=== PATIENT | female | born 2000 | race Caucasian/White ===

== ENCOUNTER 2022-01-22 09:36 | Emergency (ER) | payer OTHER, SELFPAY ==
[2022-01-22 09:40] VITALS: BP 130/82; PULSE 97; TEMP 36.4; O2SAT 100; BMI 23.0
[2022-01-22 09:57] LABS: Appearance Urine Clear (Clear); Bilirubin Urine Negative (Negative); Blood Urine 1+ (Negative); Color Urine Yellow (Yellow); Glucose Urine Negative (Negative); Ketones Urine Negative (Negative); Leukocyte Esterase Urine Negative (Negative); Nitrite Urine Negative (Negative); Protein Urine Negative (Negative); Specific Gravity Urine >= 1.030 (1.000-1.030); Urobilinogen Urine 0.2 (0.2-1.0); pH Urine 5.5 (5.0-8.5)
[2022-01-22 09:58] LABS: HCG Qualitative* Negative (Negative)
[2022-01-22 10:10] LABS: RBC Urine 0-2 (0-2); WBC Urine 0-2 (0-5)
--- NOTE | 2022-01-22 10:33 | ED.GENADULT ---
HPI - General Adult General Chief complaint: Abdominal Pain Stated complaint: Abdominal pain Time Seen by Provider: 01/22/22 09:40 Source: patient Mode of arrival: ambulatory Limitations: no limitations History of Present Illness HPI narrative: 21-year-old female coming in today complaining of abdominal pain. She states that it started approximately 2 hours ago when she woke up. Pain is located across the lower abdomen in the pelvic area does not radiate. Nothing seems to make it better or worse. She describes it as a 3/10. Patient is not sexually active and has never been. She states that she has no dysuria, increased frequency urgency. She is not constipated, has daily bowel movements had 1 yesterday. No diarrhea. Denies any blood in her stool or urine. She is not nauseated has not vomited. She denies any fevers or chills. Her period is due any day now. She denies any vaginal discharge. Related Data Home Medications Medication Instructions Recorded Confirmed No Known Home Medications 01/22/22 01/22/22 Allergies Allergy/AdvReac Type Severity Reaction Status Date / Time No Known Drug Allergies Allergy Verified 01/22/22 09:44 Review of Systems Status of ROS: Reports: 10 or more systems reviewed and unremarkable except as noted in History and below [facility] Social History Smoking Status: Never smoker How often do you have a drink containing alcohol: never How often do you have six or more drinks on one occasion: Never AUDIT-C Alcohol total score: 0 Non-prescribed substance use: denies use Exam Narrative: Exam Narrative: Well-nourished well-developed patient in no acute distress. Alert and oriented. Answers questions appropriately. Mood and affect are appropriate. Thoughts are goal oriented and rational. No tangential or magical thinking noted. Patient speaks in full sentences without needing to catch their breath. HEENT: Normocephalic atraumatic. Pupils are equally round reactive to light. Extraocular muscles are intact. Conjunctivae are moist without any icterus noted. Moist mucous membranes. Posterior pharynx is normal. Neck is soft without any lymphadenopathy or thyromegaly. No masses are appreciated. Cardiovascular: Heart is regular rate and rhythm S1 and S2 are present without any murmurs. Lungs: Clear to auscultation bilaterally no wheezes rhonchi or rales are appreciated. Patient takes deep breaths without any discomfort. Abdomen: Soft and nondistended with normal bowel sounds. She has minimal suprapubic and right lower and left lower quadrant discomfort with palpation. There is no guarding or rebound tenderness. She has no peritoneal signs. Upper abdomen is entirely normal. She does not appear uncomfortable on examination. Extremities: Bilateral lower extremities are without edema. Normal DP and PT pulses. Skin: Well perfused without any obvious rashes. Const: Vital Signs, click to edit/add: Vital Signs - 24 hr 01/22/22 09:40 Temperature 97.5 F L Pulse Rate [Left P ulse Oximeter] 97 Blood Pressure [Ri ght Upper Arm] 130/82 Pulse Oximetry 100 Oxygen Delivery Me thod Room Air Course Course Hospital Course: Urinalysis was unremarkable and test was negative. Vital Signs Vital signs: Initial Vital Signs Temperature 97.5 F L 01/22/22 09:40 Temperature Source Temporal Artery Scan 01/22/22 09:40 Pulse Rate 97 01/22/22 09:40 Blood Pressure 130/82 01/22/22 09:40 Blood Pressure Mean 98 01/22/22 09:40 Blood Pressure Position Sitting 01/22/22 09:40 Pulse Oximetry 100 01/22/22 09:40 Oxygen Delivery Method 01/22/22 09:40 Vital Signs Temperature 97.5 F L 01/22/22 09:40 Pulse Rate 97 01/22/22 09:40 Blood Pressure 130/82 01/22/22 09:40 Pulse Oximetry 100 01/22/22 09:40 Oxygen Delivery Method 01/22/22 09:40 Temperature 97.5 F L 01/22/22 09:40 Pulse Rate 97 01/22/22 09:40 Blood Pressure 130/82 01/22/22 09:40 Pulse Oximetry 100 01/22/22 09:40 Oxygen Delivery Method 01/22/22 09:40 Medical Decision Making MDM Narrative Medical decision making narrative: 21-year-old female with a couple of hours of pelvic discomfort, likely related to her menses. We discussed ibuprofen and heating pad. We discussed reasons for follow-up including worsening pain, fevers or vomiting. The patient was agreeable and had no other questions. Lab Data Lab results reviewed: Yes I reviewed the patient's lab results Labs: Lab Results 01/22/22 01/22/22 Range/Units 09:45 09:45 HCG, Qual Negative (Negative) Urine Color Yellow (Yellow) Urine Appearance Clear (Clear) Urine pH 5.5 (5.0-8.5) Ur Specific [place] >= 1.030 (1.000-1.030) Urine Protein Negative (Negative) Urine Glucose (UA) Negative (Negative) Urine Ketones Negative (Negative) Urine Blood 1+ A (Negative) Urine Nitrite Negative (Negative) Urine Bilirubin Negative (Negative) Urine Urobilinogen 0.2 (0.2-1.0) Ur Leukocyte Esterase Negative (Negative) Urine RBC 0-2 (0-2) Urine WBC 0-2 (0-5) Ur Squamous Epith Cells None (None-Few) Urine Bacteria None (None) Discharge Plan Discharge Clinical Impression: Abdominal pain Patient Disposition: Home, Self-Care Condition: Stable Additional Instructions: Okay to use ibuprofen or Tylenol as needed for discomfort. Okay to use a heating pad to the area, do not apply heat directly to skin. Return to the ER if you develop vomiting or fevers. Prescriptions: No Action No Known Home Medications Stand Alone Forms: [employer] Info Instructions
[2022-01-22 10:48] VITALS: BP 121/74; PULSE 71; O2SAT 100
== END 2022-01-22 10:49 | disposition home or self-care (01) ==
LOC: ED 10:42
PROVIDERS: Emergency Provider Family Medicine
DX: R10.30 Lower abdominal pain, unspecified (principal)
CPT/HCPCS: 81001; 84703; 87086; 99282; 99284